=== PATIENT | male | born 1990 | race Caucasian/White ===

== ENCOUNTER → 2022-02-19 | Outpatient (CLI) | payer BC ==
--- NOTE | 2022-02-19 17:01 | P.SLEEP ---
History of Present Illness H&P Date: 02/19/22 This is a 31-year-old male patient, morbidly obese, referred for sleep apnea evaluation. The patient has gained significant amount of weight over the years. No major comorbidities. He had loud snoring. He is living alone and he is from his and he is not sure if he quits breathing and he is not sure if he is having any apneas. He wakes up tired and fatigued during the day. He goes to bed at around 9 PM, wakes up at 3 AM in the morning as the patient has to be at work at 4:30 AM as the patient works in a [employer] factory. He feels tired and not refreshed. He does not fall asleep while driving. He is not falling sleep during day-to-day activities. No sleepwalking. No sleep talking. No parasomnias. No restlessness and lower extremities. No morning headaches. No nighttime shortness of breath. Denies waking up choking or gasping for air. No substance abuse. His current Waco score is at 14. Review of Systems Constitutional: Reports daytime sleepiness, Reports fatigue, Reports weight gain Eyes: denies as per HPI, denies blurred vision, denies bulging eye, denies decreased vision, denies diplopia, denies discharge, denies dry eye, denies irritation, denies itching, denies pain, denies photophobia, denies loss of peripheral vision, denies loss of vision, denies tunnel vision/blind spots Ears: deny: decreased hearing, ear discharge, earache, tinnitus Ears, nose, mouth and throat: Reports as per HPI Breasts: absent: as per HPI, gynecomastia Cardiovascular: Reports as per HPI Respiratory: Reports snoring Gastrointestinal: Reports as per HPI Genitourinary: Reports as per HPI Musculoskeletal: Reports as per HPI Musculoskeletal: absent: ankle pain, ankle stiffness, ankle swelling, as per HPI, elbow pain, elbow stiffness, elbow swelling, foot pain, foot stiffness, foot swelling, hand pain, hand stiffness, hand swelling, hip pain, hip stiffness, hip swelling, knee pain, knee stiffness, knee swelling, shoulder pain, shoulder stiffness, shoulder swelling, wrist pain, wrist stiffness, wrist swelling Integumentary: Reports as per HPI Neurological: Reports as per HPI Psychiatric: Reports as per HPI Endocrine: Reports as per HPI, Reports fatigue Allergic/Immunologic: Reports as per HPI Past Medical History Additional Past Medical History / Comment(s): Obesity Past Surgical History: Tonsillectomy Physical Exam BP is 133/71, pulse is 84, respirations 18, temperature 97.7, saturation 97% on room air, the neck size is 19.5 inches, body mass index is 46, Gen. appearance morbidly obese, comfortable in no acute distress The patient appeared well nourished and normally developed. Vital signs as documented. Head exam is unremarkable. No scleral icterus or corneal arcus noted. Neck is without jugular venous distension, thyromegaly, or carotid bruits. Significant crowding of the posterior oropharynx with a Mallampati class IV Carotid upstrokes are brisk bilaterally. Lungs are clear to auscultation and percussion. Cardiac exam reveals the PMI to be normally sized and situated. Rhythm is regular. First and second heart sounds normal. No murmurs, rubs or gallops. Abdominal exam reveals normal bowel sounds, no masses, no organomegaly and no aortic enlargement. Extremities are nonedematous and both femoral and pedal pulses are normal.Examination of the skin revealed no evidence of significant rashes, suspicious appearing nevi or other concerning lesions.Neurologically, the patient is awake and alert and the patient does not have any focal neurological deficit. Cranial nerves are essentially intact. Assessment and Plan Plan: Loud snoring and chronic hypersomnia, high likelihood for obstructive sleep apnea based on my clinical evaluation. A W[place] score is at 14 Obesity with a body mass index of 46.1 with interval weight gain Chronic fatigue Chronic sleepiness Plan High likelihood for obstructive sleep apnea. Encourage weight loss Maintain aggressive schedule Optimizing sleep hygiene measures Proceed with a polysomnogram We'll treat based on those results Sleep Note - Sleep Note Sleep Note: Temperature: Pulse Rate: Respiratory Rate: Blood Pressure: SpO2: Height: Weight: BMI: Neck Circumference:
== END ==
LOC: SLEEP 13:46
PROVIDERS: ATTEND Internal Medicine Critical Care Medicine
DX: G47.33 Obstructive sleep apnea (adult) (pediatric) (principal); E66.01 Morbid (severe) obesity due to excess calories; Z68.42 Body mass index [BMI] 45.0-49.9, adult; R53.82 Chronic fatigue, unspecified
CPT/HCPCS: 99202

== ENCOUNTER → 2022-09-03 | Outpatient (CLI) | payer BC ==
--- NOTE | 2022-09-03 15:51 | P.PN ---
Progress Note - Text Progress Note Date: 09/03/22 32-year-old male patient coming in for a compliance check regarding his obstructive sleep apnea treatment. The patient was diagnosed having moderate to severe MARTIN with an AHI of 21.4 and the patient is currently on CPAP therapy at a pressure of 8 cm of water. The patient was offered the treatment back in April 2022 and is coming in for a compliancy check. He is doing well and he is benefiting from the treatment and the patient is committed to long-term CPAP therapy. He is morbidly obese and he has gained around 8 pounds since his diagnosis. Nevertheless, based on the compliance data that has been collected between 08/04/2022 and 09/02/2022, the patient utilized the machine and 97% of the time indicating excellent compliancy, and the patient has been averaging 4 hours and 32 minutes of CPAP use per night. His AHI is down to 0.4 while on treatment and the 95th percentile leak is in the order of 39 L/m. His snoring is subsided. The patient is waking up much more alert and awake during the day. No major hypersomnia or sleepiness. Is improved. BP is 153/92 with a pulse of 96 and the respiration of 12 and a pulse ox of 95% on room air and the weight is 353 pounds. [place] score is down to 10 The patient appeared well nourished and normally developed. Vital signs as documented. Head exam is unremarkable. No scleral icterus or corneal arcus noted. Neck is without jugular venous distension, thyromegaly, or carotid bruits. Carotid upstrokes are brisk bilaterally. Lungs are clear to auscultation and percussion. Cardiac exam reveals the PMI to be normally sized and situated. Rhythm is regular. First and second heart sounds normal. No murmurs, rubs or gallops. Abdominal exam reveals normal bowel sounds, no masses, no organomegaly and no aortic enlargement. Extremities are nonedematous and both femoral and pedal pulses are normal.Examination of the skin revealed no evidence of significant rashes, suspicious appearing nevi or other concerning lesions.Neurologically, the patient is awake and alert and the patient does not have any focal neurological deficit. Cranial nerves are essentially intact. Impression Obstructive sleep apnea with an AHI of 21.4. The patient is currently on CPAP therapy at a pressure of 8 cm of water. Clinically responses adequate. Compliancy is adequate and the patient is committed to long-term CPAP therapy as the patient is improving and his snoring has subsided. Chronic hypersomnia, improved with CPAP therapy Obesity current body weight is up to 353 pounds Plan Recommend weight loss. Implements good sleep hygiene measures. Continue CPAP therapy the same level of pressure Keep same mask interface Treatment is successful The patient is compliant See me back in one year's time at the clinic in [facility].
== END ==
LOC: SLEEP 13:56
PROVIDERS: ATTEND Internal Medicine Critical Care Medicine
DX: G47.33 Obstructive sleep apnea (adult) (pediatric) (principal); E66.9 Obesity, unspecified; Z99.89 Dependence on other enabling machines and devices
CPT/HCPCS: 99212